=== PATIENT | male | born 1985 | race Two or more races ===

== ENCOUNTER 2020-10-27 17:02 | Emergency (ER) | payer SELFPAY ==
[~2020-10-27] VITALS: Ht 167.6 cm; Wt 145.1 kg
[2020-10-27 18:30] VITALS: BP 107/79
== END 2020-10-27 18:48 ==
LOC: ER 17:02
DX: F10.920 Alcohol use, unspecified with intoxication, uncomplicated (principal); V49.9XXA Car occupant (driver) (passenger) injured in unspecified traffic accident, initial encounter; Y93.89 Activity, other specified; Y92.89 Other specified places as the place of occurrence of the external cause; Y99.8 Other external cause status